=== PATIENT | female | born 1990 | race Caucasian/White ===

== ENCOUNTER → 2020-08-23 | Outpatient (CLI) | payer OTHER | END | disposition home or self-care (01) | LOC: COVID19 15:07 | PROVIDERS: ATTEND Internal Medicine | DX: Z20.828 Contact with and (suspected) exposure to other viral communicable diseases (principal) ==

== ENCOUNTER 2022-06-07 02:16 | Emergency (ER) | payer OTHER ==
[~2022-06-07] VITALS: Ht 172.7 cm; Wt 77.1 kg
[2022-06-07] MEDS ORDERED: NAPROSYN EC375 MG PO (04:08)
[2022-06-07] MEDS ORDERED: AMOXICILLIN500 M2 PO (04:08)
== END 2022-06-07 04:31 | disposition home or self-care (01) ==
LOC: ED 02:16
DX: K04.7 Periapical abscess without sinus (principal)

== ENCOUNTER 2024-11-18 14:03 | Emergency (ER) | payer OTHER ==
[~2024-11-18] VITALS: Ht 170.1 cm; Wt 63.5 kg
[~2024-11-18 14:03] MED LIST: AMOXICILLIN500 M2 PO; NAPROSYN EC375 MG PO
[2024-11-18] MEDS ORDERED: PENICILLIN VK500 MG PO (14:10)
== END 2024-11-18 14:13 | disposition home or self-care (01) ==
LOC: ED 14:03
DX: K04.7 Periapical abscess without sinus (principal); R50.9 Fever, unspecified